=== PATIENT | male | born 1975 | race Caucasian/White ===

== ENCOUNTER 2017-11-25 10:24 | Inpatient (IN) | payer OTHER ==
[~2017-11-25] VITALS: Ht 177.8 cm; Wt 68.0 kg
[~2017-11-25 10:24] MED LIST: INDOCIN50 MG PO; NORCO 5/3251 TABLET PO; PERCOCET 10/1 TABLET PO; PERCOCET 5/31 TABLET PO; RYBIX ODT50 MG PO; ULTRAM50 MG PO; VALIUM5 MG PO
[2017-11-25 11:14] LABS: BASOPHIL (%) 0.8 % (0-1); BASOPHIL COUNT 0.1 K/uL (0-0.1); EOSINOPHIL (%) 2.7 % (0-5); EOSINOPHIL COUNT 0.2 K/uL (0-0.3); HEMATOCRIT 38.6 % (38.0-50.0); HEMOGLOBIN 13.6 G/DL (12.5-16.6); IMMATURE GRANULOCYTE (%) 0.3 % (0.0-0.7); LYMPHOCYTE (%) 29.6 % (15-42); LYMPHOCYTE COUNT 2.7 K/uL (1.0-2.8); MCHC 35.2 G/DL (30.0-36.0); MCV 87.9 FL (86-99); MONOCYTE COUNT 0.9 K/uL (0-0.8); NEUTROPHIL (%) 56.6 % (45-76); NEUTROPHIL COUNT 5.1 K/uL (1.8-6.4); PLATELET COUNT 264 K/uL (156-360); RBC DIS.WIDTH-CV 15.8 % (11.8-14.6); RBC DIS.WIDTH-SD 50.9 % (39-53); RED BLOOD COUNT 4.39 M/uL (4.00-5.50)
[2017-11-25 11:20] LABS: INTER. NORMALIZED RATIO 1.1
[2017-11-25 11:28] LABS: ALBUMIN 3.5 g/dL (3.2-4.8)
[2017-11-25 11:29] LABS: CHLORIDE 109 mEq/L (99-109); POTASSIUM 3.5 mEq/L (3.7-5.4); SODIUM 142 mEq/L (136-147)
[2017-11-25 11:31] LABS: GLUCOSE 102 mg/dL (70-99); TOTAL PROTEIN 6.4 g/dL (6.4-8.3)
[2017-11-25 11:33] LABS: TOTAL BILIRUBIN 8.2 mg/dL (0.0-1.0)
[2017-11-25 11:34] LABS: ALKALINE PHOSPHATASE 199 IU/L (3-129)
[2017-11-25 11:35] LABS: CREATININE 0.8 mg/dL (0.6-1.3); GFR ESTIMATE (CALCULATED) > 59 mL/min/ (58.99-99999)
[2017-11-25 11:36] LABS: AST (GOT) 540 IU/L (2-34); UREA NITROGEN (BUN) 7 mg/dL (9-23)
[2017-11-25 11:37] LABS: ALT (GPT) 969 IU/L (3-49)
[2017-11-25 12:21] LABS: HEPATITIS B SURFACE ANTIGEN Nonreactive
[2017-11-25] MEDS ORDERED: TYLENOL EXTRA500 MG PO (12:48)
[2017-11-25 13:38] LABS: ACETAMINOPHEN (TYLENOL) < 10 mcg/mL (10-30); SALICYLATE < 5.0 MG/DL (15-30)
[2017-11-25 14:01] LABS: ANTI-HEPATITIS A VIRUS (IGM) Nonreactive
[2017-11-25 14:02] LABS: ANTI-HEPATITIS B CORE (IGM) Nonreactive; HIV-1/2 AB/AG COMBO Nonreactive
[2017-11-25 14:04] LABS: HEPATITIS C ANTIBODY REACTIVE
[2017-11-25 16:41] VITALS: BP 139/85
[2017-11-25 19:20] VITALS: BP 133/71
[2017-11-26 00:31] VITALS: BP 131/82
[2017-11-26 03:30] VITALS: BP 125/78
[2017-11-26 07:57] VITALS: BP 142/87
[2017-11-26 09:17] LABS: HEMATOCRIT 33.5 % (38.0-50.0); MCH 30.7 PG (29.0-34.0); MCHC 34.6 G/DL (30.0-36.0); MCV 88.6 FL (86-99); RBC DIS.WIDTH-CV 15.9 % (11.8-14.6); RBC DIS.WIDTH-SD 51.8 % (39-53); RED BLOOD COUNT 3.78 M/uL (4.00-5.50); WHITE BLOOD COUNT 7.4 K/uL (4.1-10.2)
[2017-11-26 09:28] LABS: HEMOGLOBIN 11.6 G/DL (12.5-16.6)
[2017-11-26 09:33] LABS: ALKALINE PHOSPHATASE 137 IU/L (3-129); ALT (GPT) 509 IU/L (3-49); AST (GOT) 206 IU/L (2-34); CHLORIDE 108 MEQ/L (99-109); CREATININE 0.9 MG/DL (0.6-1.3); DIRECT BILIRUBIN 4.2 mg/dL (0.0-0.3); GFR ESTIMATE (CALCULATED) > 59 mL/min/ (58.99-99999); GLUCOSE 150 mg/dL (70-99); POTASSIUM 3.8 MEQ/L (3.7-5.4); SODIUM 139 MEQ/L (136-147); TOTAL BILIRUBIN 6.7 MG/DL (0.0-1.0); UREA NITROGEN (BUN) 7 mg/dL (9-23)
[2017-11-26 09:34] LABS: PLAT.SUFFICIENCY ADEQUATE; PLATELET COUNT 251 K/uL (156-360)
[2017-11-26 12:20] VITALS: BP 127/79
[2017-11-26 12:45] VITALS: BP 127/79
[2017-11-27 11:01] LABS: ANTI-HEPATITIS B CORE (TOTAL) Nonreactive
[2017-11-28 10:49] LABS: MITOCHONDRIAL (M2) ANTIBODIES+ <=20.0 U (<=20.0)
[2017-11-28 13:53] LABS: HCV RNA (IU/mL) 85100 IU/mL (())
[2017-11-28 17:55] LABS: ALPHA-1-ANTITRYPSIN+ 138 mg/dL (83-199)
[2017-11-29 20:17] LABS: Cytomegalovirus IgM Antibody+ <30.00 AU/mL (<30.00)
[2017-11-30 12:32] LABS: HCV RNA (LOG IU/mL) 4.93 (())
== END 2017-11-26 15:53 | disposition home or self-care (01) | DRG 442 ==
LOC: EME 10:24 → EDOF 12:36 → ENRESERV 12:37 → 5SOUTH 16:17
PROVIDERS: Emergency Medicine; Internal Medicine; Specialist
DX: B17.9 Acute viral hepatitis, unspecified (principal); K76.6 Portal hypertension; K82.8 Other specified diseases of gallbladder; R74.0 Nonspecific elevation of levels of transaminase and lactic acid dehydrogenase [LDH]; R60.9 Edema, unspecified; F10.21 Alcohol dependence, in remission; F11.11 Opioid abuse, in remission; F17.200 Nicotine dependence, unspecified, uncomplicated; G43.909 Migraine, unspecified, not intractable, without status migrainosus
CPT/HCPCS: 74177; 74181; 76705; 80048; 80053; 80074; 80076; 80306 90; 82103 90; 82390; 85025; 85027; 85610; 86038; 86256 90; 86645 90; 86664; 86665; 86704; 86708 90; 87040; 87340; 87389; 87522 90; 99281; 99285; G0480; J1170; J1650; J2270; J2405; J2543; J3010; J7030; J7042; J7050